=== PATIENT | male | born 1980 ===

== ENCOUNTER 2024-07-11 18:27 | Emergency (ER) | payer MEDICARE, SELFPAY ==
[2024-07-11 18:36] VITALS: BP 140/90
--- NOTE | 2024-07-11 20:03 | ED.GENMED ---
History of Present Illness
General
Chief Complaint: Crisis Evaluation
Source: patient and records
Time Seen by Provider: 07/11/24 19:09
History of Present Illness
History of Present Illness:
44-year-old male with history of bipolar disorder, anxiety disorder presents with aggressive behaviors. Patient reportedly was evaluated at [facility] as well. Patient was sent from local facility because they cannot handle him. A 302
was filed
Past History
Past History
ED Past Medical History: Other (Anxiety disorder, bipolar disorder)
Phy Exam
Physical Exam
Physical Exam:
CONSTITUTIONAL Vital signs reviewed, Patient alert and oriented to person, place and time. Well-appearing
HEAD atraumatic, normocephalic.
EYES eyelids normal to inspection, Extraocular muscles intact, Conjunctiva normal, Sclera normal.
NECK normal range of motion, Trachea midline, no jugular venous distention.
RESP no respiratory distress
BACK No obvious deformities
UPPER EXTREMITY Gross Range of motion normal, gross motor strength normal
LOWER EXTREMITY Gross range of motion normal, Gross motor strength normal
NEURO Speech normal, No focal motor deficits include, [place] coma scale 15, Memory normal, Cranial Nerves intact to screening exam.
SKIN Skin warm, dry, and normal in color.
Awake and alert, answers questions appropriately. Poor insight
Course
Orders/Labs/Results
Orders:
Orders
07/11/24 19:50
Crisis Consult Routine
Reason for Consult: aggressive behavior
07/11/24 20:21
Complete Blood Count/With Diff Urgent
Comprehensive Metabolic Panel Urgent
Depakane Urgent
Abnormal Lab Results
07/11/24
20:21
RBC 4.42 L 10^6/uL
(4.70-6.10)
Absolute Lymphs (auto) 3.6 H 10^3/uL
(1.2-3.4)
BUN 4 L mg/dl
(9-20)
Creatinine 0.6 L mg/dL
(0.7-1.3)
AST 61 H U/L
(17-59)
Valproic Acid 40.7 L ug/ml
(50.0-120.0)
07/11/24 20:21
07/11/24 20:21
Vital Signs
Initial and Last Documented VS:
Initial Vital Signs
Temp Pulse Resp BP Pulse Ox
97.5 F 80 16 140/90 97
07/11/24 18:36 07/11/24 18:36 07/11/24 18:36 07/11/24 18:36 07/11/24 18:36
Last Documented Vital Signs
Temp Pulse Resp BP Pulse Ox
97.5 F 80 16 140/90 97
07/11/24 18:36 07/11/24 18:36 07/11/24 18:36 07/11/24 18:36 07/11/24 18:36
MDM/Problems Addressed
MDM/Problems Addressed:
Aggressive behavior, bipolar disorder
*Pulse Oximetry
Patient hypoxic: no
*Critical Care Note
Total Time (30-74mins, 75-104mins- exclusive of procedures): Not Applicable
Data Reviewed
Source: patient
Further Testing Considered But Not Given:
Consider CT imaging but no acute medical findings by exam or history
Patient Management
Escalation/DeEscalation of care consider admission/obs:
Patient to be seen by telepsychiatry. Continue one-to-one
ED Attending Note
-
Portions of this chart may have been created with voice recognition software.� Occasional wrong word or��sound alike� substitutions may have occurred due to the inherent limitations of voice recognition software.
Discharge Plan
Departure
Patient Disposition: Psych Facility
Date of Disposition: 07/11/24
Time of Disposition: 20:03
Prescriptions:
No Action
acetaminophen 325 mg Tablet
650 mg PO Q6HPRN PRN (Reason: mild pain/WATT/fever)
atorvastatin 20 mg Tablet
20 mg PO DAILY
lisinopril-hydrochlorothiazide 20-12.5 mg Tablet
1 tab PO DAILY
clonazepam 0.5 mg Tablet
0.5 mg PO NOON
clonazepam 1 mg Tablet
1 mg PO BID
divalproex 500 mg Tablet,Delayed Release (Dr/Ec)
500 mg PO BID
metformin 1,000 mg Tablet
1,000 mg PO BID
Ear Drops (carbamide peroxide) 6.5 % Drops
5 drp EACH EAR MOTU
hydroxyzine HCl 25 mg Tablet
25 mg PO NOON
ibuprofen 600 mg Tablet
600 mg PO Q6HPRN PRN (Reason: mild pain)
fluticasone propionate 50 mcg/actuation Elaine,Suspension
2 spray INTRANASAL DAILY
olanzapine 20 mg Tablet
20 mg PO HS
diazepam 5 mg Tablet
5 mg PO DAILYPRN PRN (Reason: before dental appointments)
fluoride (sodium) [SF 5000 Plus] 1.1 % Cream
1 applic DENTAL HS
cholecalciferol (vitamin D3) [Vitamin D3] 25 mcg (1,000 unit) Tablet
25 mcg PO DAILY
Minerin Creme Cream
1 applic TOPICAL DAILY
Interventions
Interventions:
*Risk Screen - Suicide Last Done: 07/11/24 18:43
*Neglect/Abuse Screening Last Done: 07/11/24 18:43
ED-Psychological Assessment Last Done: 07/11/24 20:25
Discharge Date and Time
Print Language: TURKISH
[2024-07-11 20:29] LABS: % Basophils 0.5 % (0-2); % Eosinophils 1.3 % (0-6); % Immature Granulocytes 0.3 % (0-0.5); % Neutrophils 45.9 % (42.2-75.2); Absolute Eosinophils 0.1 10^3/uL (0-0.7); Absolute Lymphocytes 3.6 10^3/uL (1.2-3.4); Absolute Monocytes 0.4 10^3/uL (0.1-0.6); Absolute Neutrophils 3.5 10^3/uL (1.4-6.5); Hematocrit 39.9 % (39.0-52.0); Hemoglobin 13.5 g/dL (13.0-18.0); Mean Corp Hgb Conc. 33.8 g/dL (33.0-37.0); Mean Corpuscular Hgb 30.5 pg (27.0-31.0); Mean Corpuscular Volume 90.3 fL (80.0-94.0); Mean Platelet Volume 8.6 fL (7.4-10.4); Nucleated Red Blood Cells % 0.3 % (-); Platelet Count 225 10^3/uL (130-400); Red Blood Cell Count 4.42 10^6/uL (4.70-6.10); Red Cell Dist. Width 13.1 % (11.5-14.5); White Blood Cell Count 7.7 10^3/uL (4.8-10.8)
[2024-07-11 21:03] LABS: ALT (SGPT) 50 U/L (0-50); AST (SGOT) 61 U/L (17-59); Albumin 4.2 g/dl (3.5-5.0); Alkaline Phosphatase 43 U/L (38-126); Blood Urea Nitrogen 4 mg/dl (9-20); Calcium 10.2 mg/dl (8.4-10.2); Carbon Dioxide 26 mmol/L (22-30); Chloride 98 mmol/L (98-107); Glucose 98 mg/dl (70-99); Potassium 4.1 mmol/L (3.5-5.1); Sodium 135 mmol/L (135-145); Total Bilirubin 0.6 mg/dl (0.2-1.3); Total Protein 6.4 g/dl (6.3-8.2); eGFR > 60.00
[2024-07-11 21:12] LABS: Depakane 40.7 ug/ml (50.0-120.0)
[2024-07-12 00:18] VITALS: BP 117/79
[2024-07-12] MEDS: GLUCOPHAGE 1000 MG PO ×3 (01:27→18:27)
[2024-07-12] MEDS: KLONOPIN 1 MG PO ×3 (01:27→21:06)
[2024-07-12] MEDS: ZYPREXA 20 MG PO (01:27)
[2024-07-12 01:30] LABS: Glucose - Point of Care 83 mg/dl (70-99)
--- NOTE | 2024-07-12 07:40 | ED.CRISIS ---
ED Crisis Note
ED Crisis Note
Subjective:
44-year-old male lives at [facility] chronic mental illness sent in for aggressive behavior. No acute events overnight. Requesting his normal home medication.
Objective:
Resting comfortably no distress. Calm and cooperative.
Assessment/Plan:
Patient currently pending psychiatric evaluation here. Psychiatry has been consulted. Ordered normal home meds. Continue to monitor.
[2024-07-12 08:29] VITALS: BP 129/93; BMI 27.4
[2024-07-12] MEDS: DEPAKOTE (12 HR RELEASE) 500 MG PO ×2 (08:29→21:06)
[2024-07-12] MEDS: ZESTRIL 10 MG PO (08:30)
[2024-07-12] MEDS: VITAMIN D3 (cholecalciferol) 25 MCG PO (08:30)
[2024-07-12] MEDS: LIPITOR 20 MG PO (08:30)
[2024-07-12] MEDS: ORETIC 12.5 MG PO (08:49)
[2024-07-12] MEDS: GLUCOPHAGE PO ×2 (08:50→18:34)
--- NOTE | 2024-07-12 10:52 | EDRN ---
Pt was assigned a possible bed but no longer possible to take pt. process worker Radha is continuing to look for a place at this time. Dr. Chavira should be coming in and should see pt today.
--- NOTE | 2024-07-12 14:57 | W.PN.UPDATE ---
Update Note
Progress Note Update
Patient so far has been calm and cooperative. Not agitated or aggressive in the ER Crisis setting.
For some reason Zyprexa 20 mg hs was D/C'd. I will restart at 10 mg HS.
Will F/U, discussed with Crisis regarding discharge.
[2024-07-12 15:12] VITALS: BP 127/79
[2024-07-12] MEDS: ATARAX 25 MG PO (15:14)
[2024-07-12] MEDS: KLONOPIN 0.5 MG PO (15:15)
[2024-07-12 21:04] VITALS: BP 129/92
[2024-07-12] MEDS: ZYPREXA 10 MG PO (22:15)
[2024-07-13 07:50] VITALS: BP 136/71
[2024-07-13] MEDS: DEPAKOTE (12 HR RELEASE) 500 MG PO ×2 (08:55→20:40)
[2024-07-13] MEDS: KLONOPIN 0.5 MG PO (08:55)
[2024-07-13] MEDS: KLONOPIN 1 MG PO ×2 (08:55→20:39)
[2024-07-13] MEDS: GLUCOPHAGE 1000 MG PO ×2 (08:55→18:03)
[2024-07-13] MEDS: ZESTRIL 10 MG PO (08:55)
[2024-07-13] MEDS: ATARAX 25 MG PO (08:55)
[2024-07-13] MEDS: VITAMIN D3 (cholecalciferol) 25 MCG PO (08:55)
[2024-07-13 08:58] VITALS: BP 128/78
[2024-07-13] MEDS: ORETIC 12.5 MG PO (09:40)
--- NOTE | 2024-07-13 12:58 | W.PN.UPDATE ---
Update Note
Progress Note Update
Patient is not able to provide meaningful information, however staff reports he has been stable, not agitated or aggressive.
Appetite stable, no insomnia.
The facility where he resides apparently request a conference in order to take him back.
Depakote level was 40 so will repeat.
--- NOTE | 2024-07-13 15:18 | ED.CRISIS ---
ED Crisis Note
ED Crisis Note
Subjective:
No acute events overnight
Objective:
Resting comfortably no distress.
Assessment/Plan:
Psychiatry following. Apparently there is a conference scheduled tomorrow with [facility] to see if they will accept patient back. Continue to monitor.
[2024-07-13 17:58] LABS: Glucose - Point of Care 80 mg/dl (70-99)
[2024-07-13] MEDS: LIPITOR 20 MG PO (18:05)
[2024-07-13 20:00] VITALS: BP 132/75
[2024-07-13] MEDS: ZYPREXA 10 MG PO (22:52)
[2024-07-14 01:52] VITALS: BP 123/99
[2024-07-14 06:43] LABS: Depakane 53.8 ug/ml (50.0-120.0)
[2024-07-14] MEDS: GLUCOPHAGE 1000 MG PO (09:18)
[2024-07-14] MEDS: ATARAX 25 MG PO (09:19)
[2024-07-14] MEDS: KLONOPIN 1 MG PO (09:19)
[2024-07-14] MEDS: VITAMIN D3 (cholecalciferol) 25 MCG PO (09:20)
[2024-07-14] MEDS: DEPAKOTE (12 HR RELEASE) 500 MG PO (09:20)
[2024-07-14] MEDS: ORETIC 12.5 MG PO (10:13)
[2024-07-14] MEDS: ZESTRIL 10 MG PO (10:16)
[2024-07-14] MEDS: KLONOPIN PO (10:18)
[2024-07-14 10:19] VITALS: BP 125/87
--- NOTE | 2024-07-14 11:17 | ED.CRISIS ---
ED Crisis Note
ED Crisis Note
Subjective:
No further issues
Assessment/Plan:
I spoke to Carey from crisis. The patient was seen by Dr. Salgado yesterday. There apparently was issue with staffing at [facility]. Plan is to go back to [facility] today.
== END 2024-07-11 20:03 | disposition home or self-care (01) ==
LOC: EMR 18:27
PROVIDERS: CONSULT PHYSICIAN Psychiatry & Neurology Psychiatry; EMERGENCY PHYSICIAN Emergency Medicine
DX: R45.6 Violent behavior (principal); F31.9 Bipolar disorder, unspecified; F41.9 Anxiety disorder, unspecified
CPT/HCPCS: 99285; 80053; 80164; 82962; 85025